=== PATIENT | male | born 1995 | race Caucasian/White ===

== ENCOUNTER 2024-11-03 02:55 | Emergency (ER) | payer MEDICAID, OTHER ==
[~2024-11-03] VITALS: Ht 182.9 cm; Wt 95.5 kg
[2024-11-03 03:50] VITALS: BP 119/64; PULSE 77; RESP 18; TEMP 98; O2SAT 96
--- NOTE | 2024-11-03 04:14 | ED.PDOC ---
Musculoskeletal HPI Comments PATIENT C/O LEFT KNEE INJURY S/P FALL, STATES HE FEELS LIKE IT IS DISLOCATED. PT STATES HE HAS DISLOCATED IT 3 TIMES. Chief Complaint: Lower Extremity Time Seen by MD: 02:57 Reviewed Notes: Nurses Notes, Medications, Allergies Allergies: Coded Allergies: NO KNOWN ALLERGIES (Unverified , 11/13/15) Home Meds Active Scripts Methylprednisolone (Medrol Dosepak) 4 Mg David, 4 MG PO UD for 6 Days, #21 TAB 6 Refills UAD Prov:GRACE RIBEIRO [facility] DIRECT[facility] 11/03/24 Past Medical History PAST MEDICAL HISTORY: Denies Surgical History: Denies all surgeries Family History Family History: Unknown Social History Smoker: Non-Smoker Alcohol: Denies ETOH Use Drugs: Denies Drug Use Lives In: Home Constitutional: denies: chills, diaphoresis, fatigue, fever, malaise, sweats, weakness, others EENTM: denies: blurred vision, double vision, ear bleeding, ear discharge, ear drainage, ear pain, ear ringing, eye pain, eye redness, hearing loss, mouth pain, mouth swelling, nasal discharge, nose bleeding, nose congestion, nose pain, photophobia, tearing, throat pain, throat swelling, voice changes, others Respiratory: denies: cough, hemoptysis, orthopnea, SOB at rest, shortness of breath, SOB with excertion, stridor, wheezing, others Cardiovascular: denies: chest pain, dizzy spells, diaphoresis, Dyspnea on exertion, edema, irregular heart beat, left arm pain, lightheadedness, palpitations, PND, syncope, others Gastrointestinal: denies: abdomen distended, abdominal pain, blood streaked bowels, constipated, diarrhea, dysphagia, difficulty swallowing, hematemesis, melena, nausea, poor appetite, poor fluid intake, rectal bleeding, rectal pain, vomiting, others Neurological: denies: dizziness, fainting, headache, left sided numbness, left sided weakness, numbness, paresthesia, pre-existing deficit, right sided numbness, right sided weakness, seizure, speech problems, tingling, tremors, weakness, others Musculoskeletal: reports: joint pain, joint swelling; denies: back pain, gout, muscle pain, muscle stiffness, neck pain, others Integumetry: denies: bruises, change in color, change in hair/nails, dryness, laceration, lesions, lumps, rash, wounds, others Allergic/Immunocompromised: denies: Difficulty Healing, Frequent Infections, Hives, Itching, others Hematologic/Lymphatic: denies: anemia, blood clots, easy bleeding, easy bruising, swollen glands, others Endocrine: denies: excessive hunger, excessive sweating, excessive thirst, excessive urination, flushing, intolerance to cold, intolerance to heat, unexplained weight gain, unexplained weight loss, others Psychiatric: denies: anxiety, bipolar disorder, depression, hopeless, panic disorder, schizophrenia, sleepless, suicidal, others Physical Exam General Appearance: No Apparent Distress, Normal HEENT: Pharynx Normal Neck: Full Range of Motion, Non-Tender Respiratory: Lungs Clear, No Accessory Muscle Use, No Respiratory Distress, Normal Breath Sounds Cardiovascular: No Murmur, Normal Peripheral Pulses, Regular Rate/Rhythm Breast Exam: Deferred Gastrointestinal: Non Tender, Soft Genitalia: Deferred Pelvic: Deferred Rectal: Deferred Extremities: Normal capillary refill, Normal inspection, Normal range of motion, Non-tender, No pedal edema Musculoskeletal : Location: Left Extremity Location: Knee (NEGATIVE JOHANNA'S NEGATIVE BALLOTTEMENT NEGATIVE DRAWER EXAM. NO NOTED EDEMA OR GROSS VISIBLE EXTERNAL TRAUMA. SENSORY MOTION INTACT POSITIVE POPLITEAL AND RADIAL PULSE) Apperance: Normal Neurologic: Alert, No Motor Deficits, Normal Affect, Normal Mood, No Sensory Deficits Cerebellar Function: Normal Reflexes: Normal Skin: Dry, Normal Color, Warm Lymphatic: No Adenopathy Was a procedure done? Was a procedure done?: No Differential Diagnosis EXT Differential Diagnosis: Fracture, Sprain, Dislocation X-Ray, Labs, Meds, VS Vital Signs Date Time Temp Pulse Resp B/P (MAP) Pulse Ox O2 Delivery O2 Flow Rate FiO2 11/03/24 03:50 98.0 77 18 119/64 (82) 96 98.0 X-Ray, Labs, Meds, VS Comment CLINICAL INDICATION: KNEE PAIN/INJURY TECHNIQUE: XY L KNEE 3V XRAY Comparison: None FINDINGS/IMPRESSION: : There is no evidence of acute fracture or dislocation. Soft tissues are unremarkable. Electronically Signed by: Roosevelt Willis at [facility] PATIENT PROVIDED ARIANA WRAP AND CRUTCHES. TRIAL OF MEDROL DOSEPAK TAKE MEDICATIONS PRESCRIBED SIDE EFFECTS DISCUSSED. FOLLOW UP WITH PCP IN 2- 3 DAYS NECESSARY CONSIDER FURTHER IMAGING SUCH MRIS SYMPTOMS PERSIST. ER RETURN PRECAUTIONS GIVEN PATIENT INDICATES UNDERSTANDING AND AGREES WITH DISCHARGE PLAN OF CARE. Time of 1ST Reevaluation: 02:57 Reevaluation 1ST: Unchanged Reevaluation 2ND: Improved Patient Education/Counseling: Diagnosis, Treatment, Need For Follow Up Family Education/Counseling: No Family Present Departure 1 Departure Time of Disposition: 05:40 Impression: Primary Impression: Contusion of knee, left Qualified Codes: S80.02XA - Contusion of left knee, initial encounter Disposition: HOME / SELF CARE / HOMELESS Condition: Stable e-Prescriptions Methylprednisolone (Medrol Dosepak) 4 Mg David 4 MG PO UD for 6 Days, #21 TAB 6 Refills UAD Prov: GRACE RIBEIRO 11/03/24 Discharged With: Self Critical Care Note Critical Care Time?: No Stability Stability form required: GRACE Alberts Nov 03, 2024 04:14
[2024-11-03] MEDS: OXYCODONE W/ ACETAMINOPHEN 5/325MG TABLET PO ONE (04:32)
--- NOTE | 2024-11-03 04:50 | DVH ---
CLINICAL INDICATION: KNEE PAIN/INJURY TECHNIQUE: XY L KNEE 3V XRAY Comparison: None FINDINGS/IMPRESSION: : There is no evidence of acute fracture or dislocation. Soft tissues are unremarkable.
[2024-11-03] MEDS ORDERED: METH4PAK PO (05:42)
== END 2024-11-03 06:05 | disposition home or self-care (01) ==
LOC: ER 02:55
DX: S80.02XA Contusion of left knee, initial encounter (principal); W18.39XA Other fall on same level, initial encounter; Y93.89 Activity, other specified; Y92.89 Other specified places as the place of occurrence of the external cause; Y99.8 Other external cause status
CPT/HCPCS: 73562

== ENCOUNTER 2025-04-11 04:31 | Emergency (ER) | payer MEDICAID ==
[~2025-04-11] VITALS: Ht 182.9 cm; Wt 93.2 kg
[~2025-04-11 04:31] MED LIST: METH4PAK PO
[2025-04-11 06:13] VITALS: BP 129/82; PULSE 100; RESP 19; TEMP 97.7; O2SAT 99
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
[2025-04-11] MEDS ORDERED: TRAM-626 PO (06:52)
--- NOTE | 2025-04-11 06:58 | DVH ---
Right lower extremity venous duplex Clinical History: right leg pain/swelling Comparison: None Findings: Duplex Doppler evaluation of the deep venous systems of the right lower extremity from the common femoral veins to the popliteal veins including color Doppler and spectral/pulsed waveform analysis was performed. RIGHT SIDE: The common femoral vein demonstrates appropriate compressibility and waveform variability. There is compressibility/patency of the great saphenous vein at the proximal thigh. The femoral vein demonstrates appropriate compressibility and waveform variability. The deep femoral vein demonstrates appropriate compressibility and waveform variability. The popliteal vein demonstrates appropriate compressibility and waveform variability. There is normal compressibility at the tibioperoneal trunk. Impression: 1. No right femoropopliteal venous thrombosis.
[2025-04-11] MEDS: HYDROcodone-ACET 5/325MG TAB PO ONE (07:10)
== END 2025-04-11 07:16 | disposition home or self-care (01) ==
LOC: ER 04:31
DX: S82.141A Displaced bicondylar fracture of right tibia, initial encounter for closed fracture (principal); V98.8XXA Other specified transport accidents, initial encounter; Y93.89 Activity, other specified; Y92.89 Other specified places as the place of occurrence of the external cause; Y99.8 Other external cause status
CPT/HCPCS: 29505; 73562; 93971